=== PATIENT | female | born 1980 | race American Indian/Alaskan Native ===

== ENCOUNTER 2018-03-13 14:18 | Emergency (ER) | payer MEDICAID, OTHER ==
[2018-03-13] MEDS ORDERED: NORCO 5/325 PO ONE (14:36)
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
--- NOTE | 2018-03-13 15:07 | Cat Scan Report ---
FINAL REPORT EXAM: CT HEAD/BRAIN WO CON HISTORY: Trauma TECHNIQUE: CT of the Head without IV contrast. PRIORS: None currently available. FINDINGS: There is no evidence for acute ischemia. There is no hemorrhage. There is no midline shift. There is no hydrocephalus. There is no mass. Age appropriate blandon-white matter attenuation is noted. There is no calvarial fracture. The temporal bones demonstrate aerated mastoid air cells. The middle ears appear unremarkable. Paranasal sinuses are unremarkable. Globes are intact. IMPRESSION: No acute intracranial findings.
--- NOTE | 2018-03-13 15:42 | Cat Scan Report ---
FINAL REPORT EXAM: CT CERVICAL SPINE WO CON HISTORY: Trauma TECHNIQUE: CT of the Cervical Spine without IV contrast. Coronal and sagittal reformatted images were provided. PRIORS: None currently available. FINDINGS: There is no fracture. There is no subluxation. There is no atlantooccipital dislocation. Occipitocervical joint is intact. C1-C2: Intact. Cervical levels do not demonstrate significant canal or foraminal narrowing. Prevertebral soft tissue structures are unremarkable. Heterogenous thyroid gland. A distinct nodules not evident; however, nodules are not excluded. IMPRESSION: No acute fracture.
--- NOTE | 2018-03-13 16:34 | XRay Report ---
FINAL REPORT EXAM: XR SPINE THORACIC 2V HISTORY: Trauma /back pain TECHNIQUE: Three views thoracic spine. PRIORS: None currently available. FINDINGS: Kyphotic alignment is intact. Vertebral body heights and disc spaces are uniform. No fracture. No subluxation. Prevertebral soft tissues are unremarkable. Levoscoliosis of the cervicothoracic spine. No rotatory component. No suspicious osseous lesions. No vertebral anomalies. IMPRESSION: Levoscoliosis of the cervicothoracic spine.
--- NOTE | 2018-03-13 16:35 | XRay Report ---
FINAL REPORT EXAM: XR SPINE LUMBOSACRAL 2-3V HISTORY: trauma/low back pain TECHNIQUE: Three views lumbar spine. PRIORS: None currently available. FINDINGS: Mild straightening of the normal lordotic alignment. Vertebral body heights are uniform. No fracture. No subluxation. Prevertebral soft tissues are unremarkable. Posterior elements are intact. No scoliosis. No suspicious osseous lesions. No vertebral anomalies. SI joints are unremarkable. Bilateral Essure devices noted. Dystrophic calcification in the pelvis. IMPRESSION: Nonspecific straightening of the normal lordotic alignment.
--- NOTE | 2018-03-13 16:36 | XRay Report ---
FINAL REPORT EXAM: XR PELVIS 1-2V HISTORY: Trauma /pelvic pain TECHNIQUE: Single view pelvis. PRIORS: None currently available. FINDINGS: PELVIS: Sacroiliac joints are unremarkable. There is no acute dislocation. There is no acute fracture. There is no evidence for healing fracture. There is no cortical destruction to suggest osteomyelitis. There are no suspicious osseous lesions. Bilateral Essure devices noted. Dystrophic calcification in the right pelvis. IMPRESSION: No acute osseous findings.
[2018-03-13] MEDS ORDERED: NACL 0.9% 1000 ML 1,000 ML IV ONE (16:51)
[2018-03-13] MEDS ORDERED: TORADOL IV ONE (16:51)
[2018-03-13 16:55] VITALS: BP 129/86
== END 2018-03-13 18:57 | disposition home or self-care (01) ==
LOC: ED 14:18
DX: S09.90XA Unspecified injury of head, initial encounter (principal); M54.2 Cervicalgia; M54.9 Dorsalgia, unspecified; V49.49XA Driver injured in collision with other motor vehicles in traffic accident, initial encounter; Y93.89 Activity, other specified; Y92.89 Other specified places as the place of occurrence of the external cause; Y99.8 Other external cause status
CPT/HCPCS: 70450; 72070; 72100; 72125; 72170; 96374; 99283; J1885; J7030